=== PATIENT | female | born 1970 | race Caucasian/White ===

== ENCOUNTER 2018-04-18 04:04 | Inpatient (IN) | payer OTHER ==
[2018-04-18] MEDS ORDERED: morphine 2 MG INJ IV (05:00)
[2018-04-18 06:19] LABS: ADD MAN DIFF? NO
[2018-04-18 06:23] LABS: WHITE BLOOD COUNT 13.4 10^3/ul (4.8-10.8)
[2018-04-18 06:23] LABS: BASOPHILS % 0.1 % (0.0-2.0); EOSINOPHILS # 0.2 10^3/ul (0.0-0.5); EOSINOPHILS % 1.2 % (0.0-7.0); HEMATOCRIT 38.8 % (37.0-47.0); HEMOGLOBIN 13.3 g/dl (12.0-16.0); LYMPHOCYTES # 2.1 10^3/ul (0.8-2.9); LYMPHOCYTES % 15.7 % (15.0-51.0); MEAN CORPUSCULAR HEMOGLOBIN 32.8 pg (29.0-33.0); MEAN CORPUSCULAR HGB CONC 34.3 g/dl (32.0-37.0); MEAN CORPUSCULAR VOLUME 95.8 fl (82.0-101.0); MEAN PLATELET VOLUME 9.6 fl (7.4-10.4); MONOCYTE # 0.9 10^3/ul (0.3-0.9); MONOCYTES % 6.7 % (0.0-11.0); NEUTROPHIL # 10.2 10^3/ul (1.6-7.5); NEUTROPHILS % 75.9 % (39.0-77.0); PLATELET COUNT 241 10^3/UL (140-415); RED BLOOD COUNT 4.05 10^6/ul (4.20-5.40); RED CELL DISTRIBUTION WIDTH 13.2 % (11.5-14.5)
[2018-04-18 06:39] LABS: HEMOGLOBIN A1C 5.4 % (0-5.9)
[2018-04-18 06:59] LABS: ALANINE AMINOTRANSFERASE 67 IU/L (13-69); ALBUMIN 3.5 g/dl (3.3-4.9); ALBUMIN/GLOBULIN RATIO 1.34; ALKALINE PHOSPHATASE 72 IU/L (42-121); ANION GAP 7 (8-16); ASPARTATE AMINO TRANSFERASE 24 IU/L (15-46); BILIRUBIN,INDIRECT 0.3 mg/dl (0-1.1); BILIRUBIN,TOTAL 0.3 mg/dl (0.2-1.3); BLOOD UREA NITROGEN 4 mg/dl (7-20); CALCIUM 9.2 mg/dl (8.4-10.2); CARBON DIOXIDE 26 mmol/L (21-31); CHLORIDE 109 mmol/L (97-110); CREATININE 0.61 mg/dl (0.44-1.00); GLUCOSE 98 mg/dl (70-220); PHOSPHORUS 4.7 mg/dl (2.5-4.9); POTASSIUM 3.4 mmol/L (3.5-5.1); SODIUM 139 mmol/L (135-144); TOTAL PROTEIN 6.1 g/dl (6.1-8.1)
[2018-04-18] MEDS ORDERED: LORAZEPAM 2 MG INJ IV (07:30)
[2018-04-18 07:56] LABS: FOLATE 7.2 ng/ml (2.8-20.0)
[2018-04-18 08:05] LABS: MAGNESIUM 1.7 mg/dl (1.7-2.5)
[2018-04-18] MEDS ORDERED: NACL 0.9% 3 ML SYG IV (09:00)
[2018-04-18] MEDS ORDERED: ALBUTEROL/IPRATROPIUM (NEB) 3 ML AMP HHN (09:00)
[2018-04-18] MEDS: HEPARIN 5,000 UNIT/0.5 ML VIAL SC ×2 (09:00→21:02)
[2018-04-18] MEDS ORDERED: BUPRENORPHINE TD (09:30)
[2018-04-18] MEDS: BUPROPION (XL) 150 MG TAB PO (10:00)
[2018-04-18] MEDS: NICOTINE (21 MG/24 HR) PATCH TRANSDERM (10:16)
[2018-04-18] MEDS: LEVETIRACETAM 500 MG TAB PO ×2 (10:16→21:01)
[2018-04-18] MEDS: POTASSIUM CHLORIDE (SR) 20 MEQ TAB PO (10:16)
[2018-04-18] MEDS: FOLIC ACID 1 MG TAB PO (10:17)
[2018-04-18] MEDS: predniSONE 1 MG TAB PO (10:30)
[2018-04-18] MEDS: SULINDAC 200 MG TAB PO ×2 (10:30→21:01)
[2018-04-18] MEDS: LORAZEPAM 2 MG INJ IV ×2 (11:02→21:59)
[2018-04-18] MEDS: morphine LIQ (10 MG/5 ML) CUP PO (19:53)
[2018-04-18 22:48] LABS: ADD UMIC YES; UR ASCORBIC ACID NEGATIVE (NEGATIVE); UR BACTERIA FEW /HPF (NONE SEEN); UR BILIRUBIN (Dip) NEGATIVE (NEGATIVE); UR BLOOD (Dip) 3+ mg/dL (NEGATIVE); UR CLARITY SLIGHTLY CLOUDY (CLEAR); UR COLOR YELLOW (YELLOW); UR GLUCOSE (Dip) NEGATIVE (NEGATIVE); UR KETONES (Dip) NEGATIVE (NEGATIVE); UR LEUKOCYTE ESTERASE (Dip) 2+ Leu/ul (NEGATIVE); UR NITRITE (Dip) NEGATIVE (NEGATIVE); UR RBC 6 /HPF (0-5); UR SPECIFIC GRAVITY (Dip) 1.006 (1.003-1.030); UR SQUAMOUS EPITHELIAL CELL MODERATE /HPF (FEW); UR TOTAL PROTEIN (Dip) NEGATIVE (NEGATIVE); UR UROBILINOGEN (Dip) NEGATIVE (NEGATIVE); UR WBC 4 /HPF (0-5)
[2018-04-19 06:13] LABS: ADD MAN DIFF? NO
[2018-04-19 06:22] LABS: BASOPHILS % 0.4 % (0.0-2.0); EOSINOPHILS # 0.3 10^3/ul (0.0-0.5); EOSINOPHILS % 3.5 % (0.0-7.0); HEMATOCRIT 37.7 % (37.0-47.0); LYMPHOCYTES # 2.2 10^3/ul (0.8-2.9); LYMPHOCYTES % 28.6 % (15.0-51.0); MEAN CORPUSCULAR HEMOGLOBIN 33.5 pg (29.0-33.0); MEAN CORPUSCULAR HGB CONC 34.5 g/dl (32.0-37.0); MEAN CORPUSCULAR VOLUME 97.2 fl (82.0-101.0); MEAN PLATELET VOLUME 9.5 fl (7.4-10.4); MONOCYTE # 0.5 10^3/ul (0.3-0.9); NEUTROPHIL # 4.7 10^3/ul (1.6-7.5); NEUTROPHILS % 61.1 % (39.0-77.0); PLATELET COUNT 221 10^3/UL (140-415); RED BLOOD COUNT 3.88 10^6/ul (4.20-5.40); RED CELL DISTRIBUTION WIDTH 13.3 % (11.5-14.5)
[2018-04-19 06:22] LABS: WHITE BLOOD COUNT 7.7 10^3/ul (4.8-10.8)
[2018-04-19 06:40] LABS: HEMOGLOBIN A1C 5.3 % (0-5.9)
[2018-04-19 06:58] LABS: ALANINE AMINOTRANSFERASE 72 IU/L (13-69); ALBUMIN 3.3 g/dl (3.3-4.9); ALBUMIN/GLOBULIN RATIO 1.32; ALKALINE PHOSPHATASE 59 IU/L (42-121); ANION GAP 6 (8-16); ASPARTATE AMINO TRANSFERASE 35 IU/L (15-46); BILIRUBIN,INDIRECT 0.4 mg/dl (0-1.1); BILIRUBIN,TOTAL 0.4 mg/dl (0.2-1.3); BLOOD UREA NITROGEN 6 mg/dl (7-20); CALCIUM 8.8 mg/dl (8.4-10.2); CARBON DIOXIDE 26 mmol/L (21-31); CHLORIDE 109 mmol/L (97-110); CHOL/HDL RATIO 3.9 RATIO; CHOLESTEROL 162 mg/dl (100-200); CREATININE 0.63 mg/dl (0.44-1.00); GLUCOSE 86 mg/dl (70-220); HDL CHOLESTEROL 41 mg/dl (34-88); LDL CHOLESTEROL,CALCULATED 70 mg/dl; MAGNESIUM 1.6 mg/dl (1.7-2.5); POTASSIUM 4.2 mmol/L (3.5-5.1); SODIUM 137 mmol/L (135-144); TOTAL PROTEIN 5.8 g/dl (6.1-8.1); TRIGLYCERIDES 253 mg/dl (0-149)
[2018-04-19] MEDS: predniSONE 1 MG TAB PO (08:19)
[2018-04-19] MEDS: FOLIC ACID 1 MG TAB PO (08:19)
[2018-04-19] MEDS: SULINDAC 200 MG TAB PO ×2 (08:19→21:00)
[2018-04-19] MEDS: NICOTINE (21 MG/24 HR) PATCH TRANSDERM (08:19)
[2018-04-19] MEDS: LEVETIRACETAM 500 MG TAB PO ×2 (08:19→21:00)
[2018-04-19] MEDS: HEPARIN 5,000 UNIT/0.5 ML VIAL SC (08:20)
[2018-04-19] MEDS: BUPROPION (XL) 150 MG TAB PO (08:20)
[2018-04-19] MEDS: ACETAMINOPHEN 325 MG TAB PO ×2 (08:50→18:57)
[2018-04-19] MEDS: DIAZEPAM 2 MG TAB PO ×2 (13:39→21:15)
[2018-04-19] MEDS: morphine LIQ (10 MG/5 ML) CUP PO (15:41)
[2018-04-19] MEDS: CIPROFLOXACIN 250 MG TAB PO (17:15)
[2018-04-19] MEDS: LACTULOSE 30ML CUP PO (18:30)
[2018-04-19] MEDS: ONDANSETRON 4 MG INJ IV (21:02)
[2018-04-20] MEDS: CIPROFLOXACIN 250 MG TAB PO (06:00)
[2018-04-20 07:15] LABS: ADD MAN DIFF? NO
[2018-04-20 07:20] LABS: BASOPHILS % 0.4 % (0.0-2.0); EOSINOPHILS # 0.2 10^3/ul (0.0-0.5); EOSINOPHILS % 2.5 % (0.0-7.0); HEMATOCRIT 37.6 % (37.0-47.0); HEMOGLOBIN 12.9 g/dl (12.0-16.0); LYMPHOCYTES % 23.5 % (15.0-51.0); MEAN CORPUSCULAR HEMOGLOBIN 33.1 pg (29.0-33.0); MEAN CORPUSCULAR HGB CONC 34.3 g/dl (32.0-37.0); MEAN CORPUSCULAR VOLUME 96.4 fl (82.0-101.0); MEAN PLATELET VOLUME 9.3 fl (7.4-10.4); MONOCYTE # 0.7 10^3/ul (0.3-0.9); MONOCYTES % 7.7 % (0.0-11.0); NEUTROPHIL # 5.6 10^3/ul (1.6-7.5); NEUTROPHILS % 65.5 % (39.0-77.0); PLATELET COUNT 254 10^3/UL (140-415); RED CELL DISTRIBUTION WIDTH 13.2 % (11.5-14.5)
[2018-04-20 07:20] LABS: WHITE BLOOD COUNT 8.6 10^3/ul (4.8-10.8)
[2018-04-20 07:40] LABS: ANION GAP 11 (8-16); BLOOD UREA NITROGEN 9 mg/dl (7-20); CALCIUM 8.7 mg/dl (8.4-10.2); CARBON DIOXIDE 27 mmol/L (21-31); CHLORIDE 105 mmol/L (97-110); CREATININE 0.75 mg/dl (0.44-1.00); GLUCOSE 88 mg/dl (70-220); POTASSIUM 3.7 mmol/L (3.5-5.1); SODIUM 139 mmol/L (135-144)
[2018-04-20 07:43] LABS: PHOSPHORUS 3.8 mg/dl (2.5-4.9)
[2018-04-20 07:43] LABS: MAGNESIUM 1.7 mg/dl (1.7-2.5)
[2018-04-20] MEDS: predniSONE 1 MG TAB PO ×2 (09:00→10:47)
[2018-04-20] MEDS: DIAZEPAM 2 MG TAB PO ×3 (09:00→22:25)
[2018-04-20] MEDS: FOLIC ACID 1 MG TAB PO ×2 (09:00→10:48)
[2018-04-20] MEDS: LEVETIRACETAM 500 MG TAB PO ×2 (09:00→10:48)
[2018-04-20] MEDS: SULINDAC 200 MG TAB PO ×3 (09:00→21:00)
[2018-04-20] MEDS: NICOTINE (21 MG/24 HR) PATCH TRANSDERM (10:47)
[2018-04-20] MEDS: morphine LIQ (10 MG/5 ML) CUP PO (10:55)
[2018-04-20] MEDS: POLYETHYLENE GLYCOL 17 GM PACKET PO (10:55)
[2018-04-20] MEDS: ACETAMINOPHEN 325 MG TAB PO (10:59)
[2018-04-20] MEDS: CYCLOBENZAPRINE 10 MG TAB PO ×2 (12:26→15:59)
[2018-04-20] MEDS ORDERED: NAPROXEN 250 MG TAB PO (13:00)
[2018-04-20] MEDS ORDERED: NAPROXEN 500 MG TAB PO (13:00)
[2018-04-20] MEDS: RANITIDINE 150 MG TAB PO (15:59)
[2018-04-20] MEDS: HYDROCODONE/APAP (5/325) TAB PO ×2 (15:59→21:26)
[2018-04-20] MEDS ORDERED: MAGNESIUM CITRATE 300 ML BTL PO (17:30)
[2018-04-20] MEDS: BISACODYL (EC) 5 MG TAB PO (18:38)
[2018-04-21] MEDS: HYDROCODONE/APAP (5/325) TAB PO (06:14)
[2018-04-21] MEDS: SULINDAC 200 MG TAB PO (08:14)
[2018-04-21] MEDS: FOLIC ACID 1 MG TAB PO (08:14)
[2018-04-21] MEDS: predniSONE 2.5 MG TAB PO (08:14)
[2018-04-21] MEDS: ESCITALOPRAM 10 MG TAB PO (08:15)
[2018-04-21] MEDS: POLYETHYLENE GLYCOL 17 GM PACKET PO (08:15)
[2018-04-21] MEDS: NICOTINE (21 MG/24 HR) PATCH TRANSDERM (08:15)
[2018-04-21] MEDS: MAGNESIUM CITRATE 300 ML BTL PO (14:02)
== END 2018-04-21 14:40 | disposition home or self-care (01) | DRG 92 ==
LOC: MS4 04:04 → PP2 04-20 17:10
DX: R25.1 Tremor, unspecified (principal); F33.2 Major depressive disorder, recurrent severe without psychotic features; F43.10 Post-traumatic stress disorder, unspecified; M06.9 Rheumatoid arthritis, unspecified; K59.00 Constipation, unspecified; F17.210 Nicotine dependence, cigarettes, uncomplicated; G89.29 Other chronic pain
CPT/HCPCS: 71046; 74018; 80048; 80053; 80061; 81001; 82607; 82746; 83036; 83735; 84100; 84443; 85025; 87086; 95819; 99217; G0378